=== PATIENT | female | born 1950 | race Asian ===

== ENCOUNTER 2022-04-20 15:36 | Emergency (ER) | payer OTHER, SELFPAY ==
[2022-04-20] VITALS (12 sets, daily range): BP systolic 113–185; BP diastolic 67–98; PULSE 70–106; RESP 18–20; TEMP 36.9; O2SAT 95–97; BMI 16.4
--- NOTE | 2022-04-20 15:57 | DI.RAD.S_ITS ---
PROCEDURE: XR CHEST 2V INDICATIONS: wet cough, SOB TECHNIQUE: 2 views of the chest were acquired. COMPARISON: None. FINDINGS: Surgical changes and devices: None. Lungs and pleura: Lungs are clear. No pleural effusions or pneumothorax. Pulmonary hyperexpansion suggests emphysematous change. Mediastinum: Mediastinal contours are normal. Heart size is normal. Bones and chest wall: No suspicious bony abnormalities. Soft tissues appear unremarkable. IMPRESSION: COPD. No evidence acute pulmonary process. Dictated by: Judson Quinones M.D. on 04/20/2022 at 16:17 Approved by: Judson Quinones M.D. on 04/20/2022 at 16:17
[2022-04-20 16:57] LABS: COVID19 -Nasal RAPID Negative (Negative)
[2022-04-20] MEDS: ALBUTEROL/IPRATROPIUM 3 ML AMPUL INH (17:06)
[2022-04-20 17:36] LABS: Add Manual Diff / Slide Review NO; Basophils Absolute Auto 100 /uL (0-100); Basophils Percent Auto 2.6 % (0-2); Eosinophils Absolute Auto 300 /uL (0-450); Eosinophils Percent Auto 5.7 % (2-4); Hematocrit 40.5 % (36-46); Hemoglobin 13.6 g/dL (12.0-16.0); Lymphocytes Absolute Auto 600 /uL (1100-4500); Lymphocytes Percent Auto 13.5 % (25-40); Mean Corpuscular HGB Conc 33.5 % (30-36); Mean Corpuscular Hemoglobin 31.7 PG (26-34); Mean Corpuscular Volume 94.7 fL (80-100); Monocytes Absolute Auto 400 /uL (0-900); Monocytes Percent Auto 8.6 % (3-14); Neutrophils Absolute Auto 3200 /uL (1500-7000); Neutrophils Percent Auto 69.6 % (50-75); Platelet Count 386 X10^3/uL (150-400); Red Blood Cell Count 4.28 X10^6/uL (4.0-5.2); Red Cell Distribution Width 14.7 % (11.6-14.8); White Blood Cell Count 4.6 X10^3/uL (4.5-11.0)
--- NOTE | 2022-04-20 17:38 | ED_ITS ---
HPI - URI/Sore Throat <Chris Guy MD - Last Filed: 05/04/22 01:23> General Chief Complaint: Shortness of Breath/Dyspnea Stated Complaint: asthma attack Time Seen by Provider: 04/20/22 17:32 History of Present Illness HPI Narrative: Patient here from [place] visiting family. Two days ago started with coughing and wheezing and shortness of breath. Has had white expectorant productive cough. Patient states has seen a injury prevention coordinator in the past. Has history of COPD. Does not smoke. He is not on home oxygen. Patient feeling much better after receiving breathing treatments by respiratory therapist. Denies denies any chest pain or limb swelling. Related Data Previous Rx's Medication Instructions Recorded prednisone 10 mg tablet See Rx Instructions .Route 04/20/22 .COMPLEX #30 tabs Review of Systems <Chris Guy MD - Last Filed: 05/04/22 01:23> Review of Systems Narrative: GENERAL: Denies chills, fatigue, malaise, fever, sweats. HEENT: Denies sinus pain, ear pain, sore throat RESPIRATORY: Positive for dyspnea, cough CARDIOVASCULAR: Denies chest pain, palpitations GASTROINTESTINAL: Denies nausea, vomiting, abdominal pain : Denies dysuria, frequency, hematuria MUSCULOSKELETAL: denies muscle or bony pain SKIN: Denies rash, skin lesions NEUROLOGIC: Denies weakness, numbness ROS Unobtainable: All systems reviewed & are unremarkable except as noted in HPI and below Exam <Chris Guy MD - Last Filed: 05/04/22 01:23> Narrative Exam Narrative: GENERAL: in no distress, not toxic not dyspneic, patient sounds nasally congested. HEAD: Normocephalic. EYES: Pupils equal round No scleral icterus. ENT: Mucous membranes moist. NECK: Trachea midline. CARDIOVASCULAR: Regular rate and rhythm without murmurs RESPIRATORY: Speaking full sentences, equal lung sounds, slight coarse lung sounds at the bases bilaterally. No wheezing. Patient examination done after breathing treatments. GASTROINTESTINAL: Abdomen soft, non-tender EXTREMITIES: No calf tenderness BACK: No flank tenderness. NEURO: AOx4. SKIN: Warm and dry PSYCH: Not anxious, is cooperative Initial Vital Signs Initial Vital Signs: Vital Signs Temperature 98.4 F 04/20/22 15:54 Pulse Rate 106 H 04/20/22 15:54 Respiratory Rate 20 04/20/22 15:54 Blood Pressure 185/98 H 04/20/22 15:54 Pulse Oximetry 97 04/20/22 15:54 Oxygen Delivery Method 04/20/22 15:54 <Angel Alamo DO - Last Filed: 04/20/22 19:43> Initial Vital Signs Initial Vital Signs: Vital Signs Temperature 98.4 F 04/20/22 15:54 Pulse Rate 106 H 04/20/22 15:54 Respiratory Rate 20 04/20/22 15:54 Blood Pressure 185/98 H 04/20/22 15:54 Pulse Oximetry 97 04/20/22 15:54 Oxygen Delivery Method 04/20/22 15:54 Course <Chris Guy MD - Last Filed: 05/04/22 01:23> Course Course Narrative: 6:00 p.m., sign out to Dr. Alamo, labs are pending. Patient improving with breathing treatments. Will likely dispo home. Orders Ordered: Discontinued Medications Albuterol/Ipratropium (Albuterol/Ipratropium 3 Ml Ampul) 3 ml INH NOW ONE Stop: 04/20/22 17:00 Last Admin: 04/20/22 17:06 Dose: 3 ml Documented By: CHRISSY Methylprednisolone (Methylprednisolone 125 Mg/2 Ml Vial) 125 mg IV NOW ONE Stop: 04/20/22 17:38 Last Admin: 04/20/22 18:00 Dose: 125 mg Documented By: JAYA Vital Signs Vital signs: Vital Signs - 8 hr 04/20/22 15:54 04/20/22 16:08 04/20/22 16:30 Temperature 98.4 F Pulse Rate 106 H 98 H 83 Respiratory Rate 20 Blood Pressure 185/98 H Pulse Oximetry 97 95 97 Oxygen Delivery Method Room Air 04/20/22 17:00 04/20/22 17:04 04/20/22 17:04 Temperature Pulse Rate 83 82 Respiratory Rate Blood Pressure 178/80 H Pulse Oximetry 97 97 Oxygen Delivery Method 04/20/22 17:06 04/20/22 17:30 04/20/22 17:40 Temperature Pulse Rate 78 79 Respiratory Rate 18 Blood Pressure 147/67 H Pulse Oximetry 97 95 Oxygen Delivery Method Room Air 04/20/22 17:40 04/20/22 18:00 04/20/22 18:00 Temperature Pulse Rate 80 78 Respiratory Rate Blood Pressure 113/73 Pulse Oximetry 95 95 Oxygen Delivery Method 04/20/22 18:20 04/20/22 18:20 04/20/22 18:30 Temperature Pulse Rate 71 71 Respiratory Rate Blood Pressure 114/77 Pulse Oximetry 96 95 Oxygen Delivery Method 04/20/22 18:40 04/20/22 18:40 Temperature Pulse Rate 70 Respiratory Rate Blood Pressure 121/75 Pulse Oximetry 95 Oxygen Delivery Method <Angel Alamo, DO - Last Filed: 04/20/22 19:43> Orders Ordered: Discontinued Medications Albuterol/Ipratropium (Albuterol/Ipratropium 3 Ml Ampul) 3 ml INH NOW ONE Stop: 04/20/22 17:00 Last Admin: 04/20/22 17:06 Dose: 3 ml Documented By: CHRISSY Methylprednisolone (Methylprednisolone 125 Mg/2 Ml Vial) 125 mg IV NOW ONE Stop: 04/20/22 17:38 Last Admin: 04/20/22 18:00 Dose: 125 mg Documented By: JAYA Vital Signs Vital signs: Vital Signs - 8 hr 04/20/22 15:54 04/20/22 16:08 04/20/22 16:30 Temperature 98.4 F Pulse Rate 106 H 98 H 83 Respiratory Rate 20 Blood Pressure 185/98 H Pulse Oximetry 97 95 97 Oxygen Delivery Method Room Air 04/20/22 17:00 04/20/22 17:04 04/20/22 17:04 Temperature Pulse Rate 83 82 Respiratory Rate Blood Pressure 178/80 H Pulse Oximetry 97 97 Oxygen Delivery Method 04/20/22 17:06 04/20/22 17:30 04/20/22 17:40 Temperature Pulse Rate 78 79 Respiratory Rate 18 Blood Pressure 147/67 H Pulse Oximetry 97 95 Oxygen Delivery Method Room Air 04/20/22 17:40 04/20/22 18:00 04/20/22 18:00 Temperature Pulse Rate 80 78 Respiratory Rate Blood Pressure 113/73 Pulse Oximetry 95 95 Oxygen Delivery Method 04/20/22 18:20 04/20/22 18:20 04/20/22 18:30 Temperature Pulse Rate 71 71 Respiratory Rate Blood Pressure 114/77 Pulse Oximetry 96 95 Oxygen Delivery Method 04/20/22 18:40 04/20/22 18:40 Temperature Pulse Rate 70 Respiratory Rate Blood Pressure 121/75 Pulse Oximetry 95 Oxygen Delivery Method MDM - URI/Sore Throat <Chris Guy MD - Last Filed: 05/04/22 01:23> Lab Data Result diagrams: 04/20/22 17:00 04/20/22 17:00 Labs: Lab Results 04/20/22 04/20/22 04/20/22 Range/Units 16:00 17:00 17:00 WBC 4.6 (4.5-11.0) X10^3/uL RBC 4.28 (4.0-5.2) X10^6/uL Hgb 13.6 (12.0-16.0) g/dL Hct 40.5 (36-46) % MCV 94.7 (80-100) fL MCH 31.7 (26-34) PG MCHC 33.5 (30-36) % RDW 14.7 (11.6-14.8) % Plt Count 386 (150-400) X10^3/uL Neut % (Auto) 69.6 (50-75) % Lymph % (Auto) 13.5 L (25-40) % [place] % (Auto) 8.6 (3-14) % Eos % (Auto) 5.7 H (2-4) % Baso % (Auto) 2.6 H (0-2) % Neut # (Auto) 3200 (5832-5313) /uL Lymph # (Auto) 600 L (4954-6269) /uL [place] # (Auto) 400 (0-900) /uL Eos # (Auto) 300 (0-450) /uL Baso # (Auto) 100 (0-100) /uL PT 11.9 (10.1-12.7) SECONDS INR 1.0 (0.9-1.3) Sodium (137-145) mmol/L Potassium (3.4-5.1) mmol/L Chloride (98-107) mmol/L Carbon Dioxide (22-32) mmol/L BUN (7-17) mg/dL Creatinine (0.52-1.04) mg/dL Estimated GFR (>60) mL/min BUN/Creatinine Ratio (6-22) Glucose (80-110) mg/dL Lactate (0.7-2.1) mmol/L Calcium (8.4-10.2) mg/dL Total Bilirubin (0.2-1.3) mg/dL AST (14-36) IU/L ALT (<35) IU/L Alkaline Phosphatase (38-126) U/L NT-Pro-B Natriuret Pep (<125) pg/mL Total Protein (6.3-8.2) g/dL Albumin (3.5-5.0) g/dL Globulin (1.7-4.1) g/dL Albumin/Globulin Ratio (1.0-2.8) Chlamy pneumoniae PCR (Not Detect) Adenovirus (PCR) (Not Detect) B. pertussis DNA (PCR) (Not Detecte) B.parapertussis DNA PCR (Not Detecte) Coronavirus OC43 (PCR) (Not Detect) Coronavirus HKU1 (PCR) (Not Detect) Coronavirus 229E (PCR) (Not Detect) SARS-CoV-2 (PCR) Negative (Negative) Coronavirus NL63 (PCR) (Not Detect) Human Metapneumovir PCR (Not Detect) Influenza Type A (PCR) (Not Detect) Influenza Type B (PCR) (Not Detect) M. pneumoniae (PCR) (Not Detect) Parainfluenza 1 (PCR) (Not Detect) Parainfluenza 2 (PCR) (Not Detect) Parainfluenza 3 (PCR) (Not Detect) Parainfluenza 4 (PCR) (Not Detect) RSV (PCR) (Not Detect) Entero/Rhino (PCR) (Not Detect) 04/20/22 04/20/22 04/20/22 Range/Units 17:00 17:00 18:05 WBC (4.5-11.0) X10^3/uL RBC (4.0-5.2) X10^6/uL Hgb (12.0-16.0) g/dL Hct (36-46) % MCV (80-100) fL MCH (26-34) PG MCHC (30-36) % RDW (11.6-14.8) % Plt Count (150-400) X10^3/uL Neut % (Auto) (50-75) % Lymph % (Auto) (25-40) % [place] % (Auto) (3-14) % Eos % (Auto) (2-4) % Baso % (Auto) (0-2) % Neut # (Auto) (3171-3202) /uL Lymph # (Auto) (0932-0924) /uL [place] # (Auto) (0-900) /uL Eos # (Auto) (0-450) /uL Baso # (Auto) (0-100) /uL PT (10.1-12.7) SECONDS INR (0.9-1.3) Sodium 140 (137-145) mmol/L Potassium 3.6 (3.4-5.1) mmol/L Chloride 102 (98-107) mmol/L Carbon Dioxide 28 (22-32) mmol/L BUN 11 (7-17) mg/dL Creatinine 0.53 (0.52-1.04) mg/dL Estimated GFR > 60 (>60) mL/min BUN/Creatinine Ratio 20.8 (6-22) Glucose 136 H (80-110) mg/dL Lactate 1.5 (0.7-2.1) mmol/L Calcium 9.1 (8.4-10.2) mg/dL Total Bilirubin 0.2 (0.2-1.3) mg/dL AST 37 H (14-36) IU/L ALT 13 (<35) IU/L Alkaline Phosphatase 68 (38-126) U/L NT-Pro-B Natriuret Pep 161 H (<125) pg/mL Total Protein 8.5 H (6.3-8.2) g/dL Albumin 4.6 (3.5-5.0) g/dL Globulin 3.9 (1.7-4.1) g/dL Albumin/Globulin Ratio 1.2 (1.0-2.8) Chlamy pneumoniae PCR Not detected (Not Detect) Adenovirus (PCR) Not detected (Not Detect) B. pertussis DNA (PCR) Not detected (Not Detecte) B.parapertussis DNA PCR Not detected (Not Detecte) Coronavirus OC43 (PCR) Not detected (Not Detect) Coronavirus HKU1 (PCR) Not detected (Not Detect) Coronavirus 229E (PCR) Not detected (Not Detect) SARS-CoV-2 (PCR) Not detected (Negative) Coronavirus NL63 (PCR) Not detected (Not Detect) Human Metapneumovir PCR Not detected (Not Detect) Influenza Type A (PCR) Not detected (Not Detect) Influenza Type B (PCR) Not detected (Not Detect) M. pneumoniae (PCR) Not detected (Not Detect) Parainfluenza 1 (PCR) Not detected (Not Detect) Parainfluenza 2 (PCR) Not detected (Not Detect) Parainfluenza 3 (PCR) Not detected (Not Detect) Parainfluenza 4 (PCR) Not detected (Not Detect) RSV (PCR) Not detected (Not Detect) Entero/Rhino (PCR) Detected H (Not Detect) <Angel Alamo, DO - Last Filed: 04/20/22 19:43> Lab Data Labs: Lab Results 04/20/22 04/20/22 04/20/22 Range/Units 16:00 17:00 17:00 WBC 4.6 (4.5-11.0) X10^3/uL RBC 4.28 (4.0-5.2) X10^6/uL Hgb 13.6 (12.0-16.0) g/dL Hct 40.5 (36-46) % MCV 94.7 (80-100) fL MCH 31.7 (26-34) PG MCHC 33.5 (30-36) % RDW 14.7 (11.6-14.8) % Plt Count 386 (150-400) X10^3/uL Neut % (Auto) 69.6 (50-75) % Lymph % (Auto) 13.5 L (25-40) % [place] % (Auto) 8.6 (3-14) % Eos % (Auto) 5.7 H (2-4) % Baso % (Auto) 2.6 H (0-2) % Neut # (Auto) 3200 (1997-5102) /uL Lymph # (Auto) 600 L (7237-6674) /uL [place] # (Auto) 400 (0-900) /uL Eos # (Auto) 300 (0-450) /uL Baso # (Auto) 100 (0-100) /uL PT 11.9 (10.1-12.7) SECONDS INR 1.0 (0.9-1.3) Sodium (137-145) mmol/L Potassium (3.4-5.1) mmol/L Chloride (98-107) mmol/L Carbon Dioxide (22-32) mmol/L BUN (7-17) mg/dL Creatinine (0.52-1.04) mg/dL Estimated GFR (>60) mL/min BUN/Creatinine Ratio (6-22) Glucose (80-110) mg/dL Lactate (0.7-2.1) mmol/L Calcium (8.4-10.2) mg/dL Total Bilirubin (0.2-1.3) mg/dL AST (14-36) IU/L ALT (<35) IU/L Alkaline Phosphatase (38-126) U/L NT-Pro-B Natriuret Pep (<125) pg/mL Total Protein (6.3-8.2) g/dL Albumin (3.5-5.0) g/dL Globulin (1.7-4.1) g/dL Albumin/Globulin Ratio (1.0-2.8) Chlamy pneumoniae PCR (Not Detect) Adenovirus (PCR) (Not Detect) B. pertussis DNA (PCR) (Not Detecte) B.parapertussis DNA PCR (Not Detecte) Coronavirus OC43 (PCR) (Not Detect) Coronavirus HKU1 (PCR) (Not Detect) Coronavirus 229E (PCR) (Not Detect) SARS-CoV-2 (PCR) Negative (Negative) Coronavirus NL63 (PCR) (Not Detect) Human Metapneumovir PCR (Not Detect) Influenza Type A (PCR) (Not Detect) Influenza Type B (PCR) (Not Detect) M. pneumoniae (PCR) (Not Detect) Parainfluenza 1 (PCR) (Not Detect) Parainfluenza 2 (PCR) (Not Detect) Parainfluenza 3 (PCR) (Not Detect) Parainfluenza 4 (PCR) (Not Detect) RSV (PCR) (Not Detect) Entero/Rhino (PCR) (Not Detect) 04/20/22 04/20/22 04/20/22 Range/Units 17:00 17:00 18:05 WBC (4.5-11.0) X10^3/uL RBC (4.0-5.2) X10^6/uL Hgb (12.0-16.0) g/dL Hct (36-46) % MCV (80-100) fL MCH (26-34) PG MCHC (30-36) % RDW (11.6-14.8) % Plt Count (150-400) X10^3/uL Neut % (Auto) (50-75) % Lymph % (Auto) (25-40) % [place] % (Auto) (3-14) % Eos % (Auto) (2-4) % Baso % (Auto) (0-2) % Neut # (Auto) (4505-9759) /uL Lymph # (Auto) (3779-2141) /uL [place] # (Auto) (0-900) /uL Eos # (Auto) (0-450) /uL Baso # (Auto) (0-100) /uL PT (10.1-12.7) SECONDS INR (0.9-1.3) Sodium 140 (137-145) mmol/L Potassium 3.6 (3.4-5.1) mmol/L Chloride 102 (98-107) mmol/L Carbon Dioxide 28 (22-32) mmol/L BUN 11 (7-17) mg/dL Creatinine 0.53 (0.52-1.04) mg/dL Estimated GFR > 60 (>60) mL/min BUN/Creatinine Ratio 20.8 (6-22) Glucose 136 H (80-110) mg/dL Lactate 1.5 (0.7-2.1) mmol/L Calcium 9.1 (8.4-10.2) mg/dL Total Bilirubin 0.2 (0.2-1.3) mg/dL AST 37 H (14-36) IU/L ALT 13 (<35) IU/L Alkaline Phosphatase 68 (38-126) U/L NT-Pro-B Natriuret Pep 161 H (<125) pg/mL Total Protein 8.5 H (6.3-8.2) g/dL Albumin 4.6 (3.5-5.0) g/dL Globulin 3.9 (1.7-4.1) g/dL Albumin/Globulin Ratio 1.2 (1.0-2.8) Chlamy pneumoniae PCR Not detected (Not Detect) Adenovirus (PCR) Not detected (Not Detect) B. pertussis DNA (PCR) Not detected (Not Detecte) B.parapertussis DNA PCR Not detected (Not Detecte) Coronavirus OC43 (PCR) Not detected (Not Detect) Coronavirus HKU1 (PCR) Not detected (Not Detect) Coronavirus 229E (PCR) Not detected (Not Detect) SARS-CoV-2 (PCR) Not detected (Negative) Coronavirus NL63 (PCR) Not detected (Not Detect) Human Metapneumovir PCR Not detected (Not Detect) Influenza Type A (PCR) Not detected (Not Detect) Influenza Type B (PCR) Not detected (Not Detect) M. pneumoniae (PCR) Not detected (Not Detect) Parainfluenza 1 (PCR) Not detected (Not Detect) Parainfluenza 2 (PCR) Not detected (Not Detect) Parainfluenza 3 (PCR) Not detected (Not Detect) Parainfluenza 4 (PCR) Not detected (Not Detect) RSV (PCR) Not detected (Not Detect) Entero/Rhino (PCR) Detected H (Not Detect) MDM Narrative Medical decision making narrative: [1800] (Jasmeet) Patient received in sign out from Dr. Ang]. I have reviewed the clinical course and performed an independent history and physical exam. Multiple etiologies for patient's symptoms considered including: [Asthma exacerbation versus COPD versus pneumonia versus viral upper respiratory infection] Patient's symptoms improved over duration of stay with above-stated therapies. Findings and discharge diagnosis discussed with patient/family followed by verbalization of understanding Return precautions discussed with patient/family whom verbalize understanding. Discharge Plan Departure Patient Disposition: Home Clinical Impression: Upper respiratory infection, viral, Asthma exacerbation Instructions: DI for Viral Upper Respiratory Infection -- Adult Activity Restrictions/Additional Instructions: *You have been diagnosed with [viral upper respiratory infection secondary to rhino virus. COVID, flu were negative, chest x-ray demonstrates no pneumonia. There is no indication for antibiotics.] *What to do: *Please continue to take your regular medications as directed. [ ] New medication prescriptions sent to your pharmacy: [ ] [ x] New medication written as a paper prescription [ ] No new medications given *Please follow up with your primary care provider in when you return home to [place] call for an appointment. Let them know you were seen in the Emergency Department and that we ask that you be seen in follow up. *If you do not have a primary care provider please contact the [facility] Resource line at [phone]. They will ask some questions about your medical history and help get you set up with a doctor in the community. *Return to Emergency Department if you should have any new, worsening or concerning symptoms, such as [fever greater than 101 F, shaking chills, worsening pain, persistent vomiting or other bothersome symptoms] Prescriptions: New prednisone 10 mg tablet See Rx Instructions .ROUTE .COMPLEX Qty: 30 0RF Rx Instructions: Day 1,2,3: 40mg PO Daily Day 4,5,6: 30mg PO Daily Day 7,8,9: 20mg PO Daily Day 10,11,12: 10mg PO Daily #30 Visit Report Forms: Patient Portal/API
--- NOTE | 2022-04-20 17:46 | RT ---
pt states feels much better, on room air with no distress noted. Pt given MDI Spacer with teaching on her Alb Inhaler
[2022-04-20 17:51] LABS: Prothrombin Time 11.9 SECONDS (10.1-12.7)
[2022-04-20 17:55] LABS: Lactate (Lactic Acid) 1.5 mmol/L (0.7-2.1)
[2022-04-20 17:57] LABS: Alanine Aminotransferase 13 IU/L (<35); Albumin 4.6 g/dL (3.5-5.0); Albumin Globulin Ratio 1.2 (1.0-2.8); Alkaline Phosphatase 68 U/L (38-126); Aspartate Aminotransferase 37 IU/L (14-36); BUN Creatinine Ratio 20.8 (6-22); Bilirubin Total 0.2 mg/dL (0.2-1.3); Blood Urea Nitrogen 11 mg/dL (7-17); Calcium 9.1 mg/dL (8.4-10.2); Carbon Dioxide 28 mmol/L (22-32); Chloride 102 mmol/L (98-107); Estimated Glomerular Filt Rate > 60 mL/min (>60); Globulin 3.9 g/dL (1.7-4.1); Glucose 136 mg/dL (80-110); HEMOLYSIS < 15 (0-50); Potassium 3.6 mmol/L (3.4-5.1); Sodium 140 mmol/L (137-145); Total Protein 8.5 g/dL (6.3-8.2)
[2022-04-20] MEDS: methylPREDNISolone 125 MG/2 ML VIAL IV (18:00)
[2022-04-20 18:05] LABS: NT-proBNP (BNP-Adult 18+) 161 pg/mL (<125)
--- NOTE | 2022-04-20 19:22 | PC.NURSE ---
Report received - assumed care of pt at this time - NAD - no needs voiced - Respirations equal and unlabored bilaterally
[2022-04-20 19:35] LABS: Adenovirus Not Detected (Not Detect); B. parapertussis Not Detected (Not Detecte); Bordetella pertussis Not Detected (Not Detecte); Chlamydophila pneumoniae Not Detected (Not Detect); Coronavirus 229E Not Detected (Not Detect); Coronavirus HKU1 Not Detected (Not Detect); Coronavirus NL 63 Not Detected (Not Detect); Coronavirus OC43 Not Detected (Not Detect); Human Metapneumovirus Not Detected (Not Detect); Human Rhinovirus/Enterovirus Detected (Not Detect); Influenza A Not Detected (Not Detect); Influenza B Not Detected (Not Detect); Mycoplasma pneumoniae Not Detected (Not Detect); Parainfluenza Virus 1 Not Detected (Not Detect); Parainfluenza Virus 2 Not Detected (Not Detect); Parainfluenza Virus 3 Not Detected (Not Detect); Parainfluenza Virus 4 Not Detected (Not Detect); Respiratory Syncytial Virus Not Detected (Not Detect); SARS- CoV-2 Not Detected (Not Detecte)
== END 2022-04-20 19:51 | disposition home or self-care (01) ==
PROVIDERS: Emergency Medicine; Emergency Provider Emergency Medicine
DX: J45.901 Unspecified asthma with (acute) exacerbation (principal); J06.9 Acute upper respiratory infection, unspecified; B34.8 Other viral infections of unspecified site; Z20.822 Contact with and (suspected) exposure to COVID-19
CPT/HCPCS: 36415; 71046; 80053; 83605; 83880; 85025; 85610; 87633; 87635; 94640; 96374; 99284; C9803; J2930